=== PATIENT | male | born 1975 | race Hispanic/Latino ===

== ENCOUNTER 2019-11-12 07:29 | Emergency (ER) | payer SELFPAY ==
[2019-11-12 08:22] LABS: Basophils % (Auto) 0.4 % (0.0-1.8); Eosinophils % (Auto) 0.5 % (0.0-4.3); Hematocrit 46.3 % (35.5-45.6); Hemoglobin 15.6 gm/dl (11.8-15.2); Lymphocytes # (Auto) 2.3 K/mm3 (1.2-5.4); Lymphocytes % (Auto) 30.5 % (13.4-35.0); Mean Corpuscular HGB Conc 34 % (32-34); Mean Corpuscular Volume 89 fl (84-94); Monocytes % (Auto) 13.6 % (0.0-7.3); Platelet Count 207 K/mm3 (140-440); Red Cell Distribution Width 14.9 % (13.2-15.2)
[2019-11-12 08:35] LABS: BUN/Creatinine Ratio 21; Blood Urea Nitrogen 21 mg/dL (9-20); Calcium 9.2 mg/dL (8.4-10.2); Hemolysis Index 10
--- NOTE | 2019-11-12 08:37 | Emergency Department Report ---
ED Psych HPI - General Chief Complaint: Psych Stated Complaint: PANIC ATTACK, SUICIDAL THOUGHTS Time Seen by Provider: 11/12/19 08:34 Source: patient, EMS Mode of arrival: Ambulatory - History of Present Illness Initial Comments: This is a 44-year-old man with chronic methamphetamine abuse. He states that he was recently in the Crisis. He was offered a partial treatment program but he declined. He continued to have abused methamphetamine. He states yesterday he was at the [facility] and had a "panic attack". This was shortly after methamphetamine abuse. He states that this is the reason why he came to the hospital. He is depressed about his situation. However he does not have any suicidal plan. Patient gives a history of "jumping off a bridge" and "taking an overdose" in the past. He has no active suicidal at ideation that he is expressing to me at this time. MD Complaint: feels depressed -: week(s), month(s), year(s) Associated Psychiatric Symptoms: depression History of same: Yes Quality: intermittent Improves With: none Worsens With: none Context: recent drug abuse Associated Symptoms: denies other symptoms - Related Data Allergies Allergy/AdvReac Type Severity Reaction Status Date / Time Penicillins Allergy Unknown Verified 11/12/19 07:37 ED Review of Systems ROS: Stated complaint: PANIC ATTACK, SUICIDAL THOUGHTS Other details as noted in HPI Constitutional: denies: chills, fever Eyes: denies: eye pain, eye discharge, vision change ENT: denies: ear pain, throat pain Respiratory: denies: cough, shortness of breath, wheezing Cardiovascular: denies: chest pain, palpitations Endocrine: no symptoms reported Gastrointestinal: denies: abdominal pain, nausea, diarrhea Genitourinary: denies: urgency, dysuria Musculoskeletal: denies: back pain, joint swelling, arthralgia Skin: denies: rash, lesions Neurological: denies: headache, weakness, paresthesias Psychiatric: depression. denies: anxiety Hematological/Lymphatic: denies: easy bleeding, easy bruising ED Past Medical Hx - Past Medical History Previous Medical History?: Yes Hx Psychiatric Treatment: Yes - Surgical History Past Surgical History?: No - Social History Smoking Status: Current Every Day Smoker ED Physical Exam - General Limitations: No Limitations General appearance: alert, in no apparent distress - Head Head exam: Present: atraumatic, normocephalic - Eye Eye exam: Present: normal appearance. Absent: scleral icterus - ENT ENT exam: Present: mucous membranes moist - Neck Neck exam: Present: normal inspection. Absent: tenderness, meningismus - Respiratory Respiratory exam: Present: normal lung sounds bilaterally. Absent: respiratory distress - Cardiovascular Cardiovascular Exam: Present: regular rate (No longer tachycardic), normal rh ythm. Absent: systolic murmur, diastolic murmur, rubs, gallop - GI/Abdominal GI/Abdominal exam: Present: soft, normal bowel sounds. Absent: distended, tenderness, guarding, rebound - Rectal Rectal exam: Present: deferred - Extremities Exam Extremities exam: Present: normal inspection - Back Exam Back exam: Present: normal inspection - Neurological Exam Neurological exam: Present: alert, oriented X3, CN II-XII intact. Absent: motor sensory deficit - Psychiatric Psychiatric exam: Present: normal affect, normal mood - Skin Skin exam: Present: warm, dry, intact, normal color. Absent: rash ED Course Vital Signs 11/12/19 11/12/19 07:36 09:05 Temperature 98.7 F 98.2 F Pulse Rate 123 H 101 H Respiratory 15 18 Rate Blood Pressure 131/94 141/91 [Right] O2 Sat by Pulse 94 96 Oximetry - Reevaluation(s) Reevaluation #1: Discussed with mental health counselor. She recommended 1013. I completed a form. 11/12/19 13:13 ED Medical Decision Making - Lab Data Result diagrams: 11/12/19 07:49 11/12/19 07:49 Laboratory Results - last 24 hr 11/12/19 11/12/19 11/12/19 07:49 07:49 07:49 WBC 7.6 RBC 5.20 H Hgb 15.6 H Hct 46.3 H MCV 89 MCH 30 MCHC 34 RDW 14.9 Plt Count 207 Lymph % (Auto) 30.5 [place] % (Auto) 13.6 H Eos % (Auto) 0.5 Baso % (Auto) 0.4 Lymph # 2.3 [place] # 1.0 H Eos # 0.0 Baso # 0.0 Seg Neutrophils % 55.0 Seg Neutrophils # 4.2 Sodium 135 L Potassium 3.8 Chloride 97.1 L Carbon Dioxide 22 Anion Gap 20 BUN 21 H Creatinine 1.0 Estimated GFR > 60 BUN/Creatinine Ratio 21 Glucose 103 H Calcium 9.2 Plasma/Serum Alcohol < 0.01 Laboratory Results - last 24 hr 11/12/19 11/12/19 11/12/19 07:49 07:49 07:49 WBC RBC Hgb Hct MCV MCH MCHC RDW Plt Count Lymph % (Auto) [place] % (Auto) Eos % (Auto) Baso % (Auto) Lymph # [place] # Eos # Baso # Seg Neutrophils % Seg Neutrophils # Sodium 135 L Potassium 3.8 Chloride 97.1 L Carbon Dioxide 22 Anion Gap 20 BUN 21 H Creatinine 1.0 Estimated GFR > 60 BUN/Creatinine Ratio 21 Glucose 103 H Calcium 9.2 Urine Color Urine Turbidity Urine pH Ur Specific Micro Urine Protein Urine Glucose (UA) Urine Ketones Urine Blood Urine Nitrite Urine Bilirubin Urine Urobilinogen Ur Leukocyte Esterase Urine WBC (Auto) Urine RBC (Auto) Urine Bacteria (Auto) Urine Mucus Salicylates < 0.3 L Urine Opiates Screen Urine Methadone Screen Acetaminophen < 5.0 L Ur Barbiturates Screen Ur Phencyclidine Scrn Ur Amphetamines Screen U Benzodiazepines Scrn Urine Cocaine Screen U Marijuana (THC) Screen Drugs of Abuse Note Plasma/Serum Alcohol 11/12/19 11/12/19 11/12/19 07:49 07:49 09:00 WBC 7.6 RBC 5.20 H Hgb 15.6 H Hct 46.3 H MCV 89 MCH 30 MCHC 34 RDW 14.9 Plt Count 207 Lymph % (Auto) 30.5 [place] % (Auto) 13.6 H Eos % (Auto) 0.5 Baso % (Auto) 0.4 Lymph # 2.3 [place] # 1.0 H Eos # 0.0 Baso # 0.0 Seg Neutrophils % 55.0 Seg Neutrophils # 4.2 Sodium Potassium Chloride Carbon Dioxide Anion Gap BUN Creatinine Estimated GFR BUN/Creatinine Ratio Glucose Calcium Urine Color [place] Urine Turbidity Clear Urine pH 5.0 Ur Specific Micro 1.028 Urine Protein 30 mg/dl Urine Glucose (UA) Neg Urine Ketones 20 Urine Blood Neg Urine Nitrite Neg Urine Bilirubin Neg Urine Urobilinogen 4.0 Ur Leukocyte Esterase Neg Urine WBC (Auto) 3.0 Urine RBC (Auto) 3.0 Urine Bacteria (Auto) 1+ Urine Mucus 2+ Salicylates Urine Opiates Screen Urine Methadone Screen Acetaminophen Ur Barbiturates Screen Ur Phencyclidine Scrn Ur Amphetamines Screen U Benzodiazepines Scrn Urine Cocaine Screen U Marijuana (THC) Screen Drugs of Abuse Note Plasma/Serum Alcohol < 0.01 11/12/19 09:00 WBC RBC Hgb Hct MCV MCH MCHC RDW Plt Count Lymph % (Auto) [place] % (Auto) Eos % (Auto) Baso % (Auto) Lymph # [place] # Eos # Baso # Seg Neutrophils % Seg Neutrophils # Sodium Potassium Chloride Carbon Dioxide Anion Gap BUN Creatinine Estimated GFR BUN/Creatinine Ratio Glucose Calcium Urine Color Urine Turbidity Urine pH Ur Specific Micro Urine Protein Urine Glucose (UA) Urine Ketones Urine Blood Urine Nitrite Urine Bilirubin Urine Urobilinogen Ur Leukocyte Esterase Urine WBC (Auto) Urine RBC (Auto) Urine Bacteria (Auto) Urine Mucus Salicylates Urine Opiates Screen Presumptive negative Urine Methadone Screen Presumptive negative Acetaminophen Ur Barbiturates Screen Presumptive negative Ur Phencyclidine Scrn Presumptive negative Ur Amphetamines Screen Presumptive positive U Benzodiazepines Scrn Presumptive positive Urine Cocaine Screen Presumptive positive U Marijuana (THC) Screen Presumptive positive Drugs of Abuse Note Disclamer Plasma/Serum Alcohol Critical care attestation.: If time is entered above; I have spent that time in minutes in the direct care of this critically ill patient, excluding procedure time. ED Disposition Clinical Impression: Suicidal ideation, Polysubstance abuse Depression Qualifiers: Depression Type: unspecified Qualified Code(s): F32.9 - Major depressive disorder, single episode, unspecified Disposition: [id number]/[id number] PSY HOSP/PSY UNIT Is pt being admited?: No Does the pt Need Aspirin: No Condition: Stable Referrals: PRIMARY CARE, [Primary Care Provider] - 3-5 Days Time of Disposition: 13:13
[2019-11-12 09:15] LABS: Bacteria,Urine 1+ /HPF (Negative); Bilirubin,Urine NEG (Negative); Blood,Urine NEG (Negative); Color,Urine Amber (Yellow); Mucus,Urine 2+ /HPF
[2019-11-12 09:20] LABS: Methadone Screen,Urine PRESUMPTIVE NEGATIVE; Opiate Screen,Urine PRESUMPTIVE NEGATIVE
[2019-11-12 09:33] LABS: Amphetamine Screen,Urine PRESUMPTIVE POSITIVE; Benzodiazepines Screen,Urine PRESUMPTIVE POSITIVE; Cannabinoid Screen,Urine PRESUMPTIVE POSITIVE; Cocaine Screen,Urine PRESUMPTIVE POSITIVE
[2019-11-12] MEDS ORDERED: NICOTINE 21 MG/24 HR PATCH TD ONE (18:40)
[2019-11-12] MEDS ORDERED: hydrOXYzine PAMOATE 25 MG CAP PO ONE (19:51)
--- NOTE | 2019-11-13 13:50 | Consultation ---
History of Present Illness - Reason for Consult Consult date: 11/13/19 Reason for consult: Psychiatric assessment - History of Present Psychiatric Illness Mr. Giles is a 44-year-old male, patient is in bed awake alert oriented x3, he is dressed appropriately, he maintains eye contact, he is able to make his needs known. When asked why he was here the patient stated, "I was having suicidal ideation yesterday because I was so loaded on drugs, but I am coming off the drugs now and my mind is clear and I am not suicidal". The patient reports that he has been diagnosed with schizoaffective disorder and was placed on Zyprexa, Wellbutrin Vistaril, he reports that he has not taken his medications in 2 weeks due to drug abuse. The patient denies suicidal ideation at this time but states, "if I do not get into a program for drug abuse pretty much I do not know what I will do, I am unstable at this time". The patient denies homicidal ideations. The patient reports that he does hear voices of people just talking but mostly when he is on drugs. He denies visual hallucinations. He reports his depression is a 4 out of 10 and states, "whenever I am on my medication I am stable, my depression gets the best of me I feel hopeless at times". The patient reports that his anxiety is a 10 out of 10 at this time. The patient reports that he also drinks daily. The patient is noted anxious. PAST PSYCHIATRIC HISTORY: Diagnoses: Schizoaffective disorder Suicide attempts or Self-harm behavior yes Prior psychiatric hospitalizations yes Substance Abuse history: Meth heroin Previous psychiatric medications tried: Zyprexa, gabapentin, Wellbutrin, Vis taril Outpatient treatment: No PAST MEDICAL HISTORY: denies Family Psychiatric History None reported or documented SOCIAL HISTORY Marital Status: Living Arrangements: Self Employment Status: Unemployed Access to guns/weapons: Denies Education: College History of Abuse: Denies denies Legal History: Denies ROS: Constitutional: Negative for weight loss ENT: Negative for stridor Respiratory: Negative for cough or hemoptysis All other systems reviewed and are negative MENTAL STATUS General Appearance and Behavior: age appropriate, good eye contact, cooperative with questioning and polite Cooperation: Cooperative Psychomotor Behavior: within normal limits Mood: OK Affect and affective range: Congruent with stated mood Thought Process: Fluent/Logical and Goal-directed Thought Content: passive SI Speech: Normal volume and Regular rate and rhythm Intellectual Functioning Average Suicidal Ideation: passive Homicidal Ideation: Denies HI Impulse Control: intact Insight and Judgment: poor Memory: Normal Attention: Normal Orientation: alert and orientedx3 RECOMMENDATIONS MEDICATIONS: Start Zyprexa 10 mg p.o. nightly Start Wellbutrin 150 mg p.o. twice daily Start Vistaril 50 mg p.o. every 6 hours as needed Risks, benefits and alternatives of medications discussed with the patient, questions answered and consent obtained from patient. PSYCHOTHERAPY: Supportive psychotherapy provided MEDICAL: Per primary team DELIRIUM PRECAUTIONS: Please re-orient patient frequently, keep lights on during the day, and minimize benzodiazepines and opiates as these medications could worsen patient's confusion. BUSINESS SYSTEMS DEVELOPER: DISPOSITION: : The patient meets the requirement for acute inpatient psychiatric treatment at this time. The patient is having passive suicidal thoughts and requesting drug rehab. LEGAL STATUS: 1013 FOLLOW-UP: Will follow Medications and Allergies Allergies Allergy/AdvReac Type Severity Reaction Status Date / Time Penicillins Allergy Unknown Verified 11/12/19 18:45 Mental Status Exam - Vital signs Last Vital Signs Temp 97.8 F 11/13/19 07:00 Pulse 110 H 11/13/19 08:43 Resp 16 11/13/19 07:00 BP 120/85 11/13/19 07:00 Pulse Ox 96 11/13/19 08:43 Results Result Diagrams: 11/12/19 07:49 11/12/19 07:49 All other labs normal.
[2019-11-13] MEDS ORDERED: traZODone 50 MG TAB PO PRN (22:00)
[2019-11-13] MEDS ORDERED: traZODone 50 MG TAB PO SCH (22:00)
[2019-11-13] MEDS: buPROPion 75 MG TAB PO SCH (22:49)
[2019-11-14 07:41] VITALS: BP 113/76
[2019-11-14] MEDS: buPROPion 75 MG TAB PO SCH (10:52)
--- NOTE | 2019-11-14 12:19 | Progress Note ---
Subjective - Reason for Consult Consult date: 11/14/19 Reason for consult: Psychiatric assessment - Chief Complaint Chief complaint: Mr. Giles is a 44-year-old male, patient is in bed awake alert oriented x3, he is dressed appropriately, he maintains eye contact, he is able to make his needs known. The patient denies suicidal ideation he states," I have been coming off drugs and feel much clearer I understand that I need to get some form of detox, I have my children to live for I am not suicidal". The patient denies homicidal ideations and contracts for safety. The patient denies visual or auditory hallucinations, he states, "I slept very well last night, and since I am taking my medications I think I am doing well". The patient denies any form of depressive symptoms at this time. The patient is requesting child welfare social worker for an [facility]. The patient has the ability and appears to respond to psychiatric medications and appears to understand the need for medication and is willing to maintain adherence. A clinic or outpatient treatment setting is recommended at this time. pt. request out-patient psychotherapy and a psychiatrist doctor to follow ROS: Constitutional: Negative for weight loss ENT: Negative for stridor Respiratory: Negative for cough or hemoptysis All other systems reviewed and are negative MENTAL STATUS General Appearance and Behavior: age appropriate, good eye contact, cooperative with questioning and polite Cooperation: Cooperative Psychomotor Behavior: within normal limits Mood: OK Affect and affective range: Congruent with stated mood Thought Process: Fluent/Logical and Goal-directed Thought Content: Goal-directed Speech: Normal volume and Regular rate and rhythm Intellectual Functioning Average Suicidal Ideation: denies Homicidal Ideation: Denies HI Impulse Control: intact Insight and Judgment: Intact Memory: Normal Attention: Normal Orientation: alert and orientedx3 RECOMMENDATIONS MEDICATIONS: Risks, benefits and alternatives of medications discussed with the patient, questions answered and consent obtained from patient. PSYCHOTHERAPY: Supportive psychotherapy provided MEDICAL: Per primary team DELIRIUM PRECAUTIONS: Please re-orient patient frequently, keep lights on during the day, and minimize benzodiazepines and opiates as these medications could worsen patient's confusion. DISPOSITION: : No indication for inpatient psychiatric treatment at this time. The patient should be complaint with medications, not use drugs, and not drink alcohol. The patient understands that if suicidal, homicidal or endangering feelings arise he should seek assistance including but not limited to calling 911, the crisis hotline, and the emergency room. Follow up with outpatient psychiatry and primary doctor in 7 to 14 days LEGAL STATUS: d/c 1013 FOLLOW-UP: sign off Mental Status Exam - Vital signs Last Vital Signs Temp 97.4 F L 11/14/19 07:40 Pulse 100 H 11/14/19 07:40 Resp 20 11/14/19 07:40 BP 113/76 11/14/19 07:40 Pulse Ox 97 11/14/19 07:40
== END 2019-11-14 13:21 ==
LOC: EEVIPCON 07:29 → ED 07:29
DX: R45.851 Suicidal ideations (principal); F19.10 Other psychoactive substance abuse, uncomplicated; F32.9 Major depressive disorder, single episode, unspecified; F17.200 Nicotine dependence, unspecified, uncomplicated; Z88.0 Allergy status to penicillin
CPT/HCPCS: 36415; 80048; 80307; 80320; 81001; 85025; G0480; Q0177